=== PATIENT | male | born 1985 | race Caucasian/White ===

== ENCOUNTER 2017-04-16 08:12 | Emergency (ER) | payer SELFPAY ==
[2017-04-16 08:27] VITALS: BP 126/85
[2017-04-16] MEDS ORDERED: Lidocaine/EPINEPHrine/Tetracaine Soln 1 ML TOP ONE (08:39)
[2017-04-16] MEDS ORDERED: Lidocaine 1% with EPINEPHrine 1:100,000 20 ML MDV INJECT ONE (08:40)
--- NOTE | 2017-04-16 09:39 | EDM.PDOC ---
ED HPI GENERAL MEDICAL PROBLEM - General Chief Complaint: Skin Complaint Stated Complaint: BOIL IN LEFT ARMPIT Time Seen by Provider: 04/16/17 08:35 Source of Information: Reports: Patient History Limitations: Reports: No Limitations - History of Present Illness INITIAL COMMENTS - FREE TEXT/NARRATIVE: The patient presents with abscess to the left axilla. He noticed a lesion there before and drained it and it got infected. This time he noticed a small lesion about a month ago and over the past few days it has gotten larger and more painful. He denies fever or chills. He has no history of MRSA. Onset: Gradual Duration: Day(s): Location: Reports: Upper Extremity, Left (axilla) Quality: Reports: Sharp Severity: Moderate Improves with: Reports: None Worsens with: Reports: None Associated Symptoms: Reports: No Other Symptoms Left Pain Score (Numeric/FACES): 1 - Related Data Allergies Allergy/AdvReac Type Severity Reaction Status Date / Time amoxicillin Allergy Airway Verified 04/16/17 08:27 Tightness Home Meds: Home Meds Doxycycline [Vibramycin] 100 mg PO Q12HR #20 cap 04/16/17 [Rx] Past Medical History Musculoskeletal History: Reports: Fracture Psychiatric History: Reports: Addiction Dermatologic History: Reports: Other (See Below) Other Dermatologic History: boils - Infectious Disease History Infectious Disease History: Reports: Chicken Pox - Past Surgical History Musculoskeletal Surgical History: Reports: Carpal Tunnel, Other (See Below) Other Musculoskeletal Surgeries/Procedures:: spinal fusion, bilateral wrist surgery Social & Family History - Family History Family Medical History: Noncontributory - Tobacco Use Smoking Status *Q: Current Every Day Smoker Years of Tobacco use: 18 Packs/Tins Daily: 1 - Caffeine Use Caffeine Use: Reports: Coffee Other Caffeine Use: daily - Alcohol Use Days Per Week of Alcohol Use: 7 Number of Drinks Per Day: 6 Total Drinks Per Week: 42 - Recreational Drug Use Recreational Drug Use: Yes Drug Use in Last 12 Months: Yes Recreational Drug Type: Reports: Marijuana/Hashish Other Recreational Drug Type: "only marijuana in last 12 months, otherwise tried almost everything in past." ED ROS GENERAL - Review of Systems Review Of Systems: See Below Constitutional: Reports: No Symptoms HEENT: Reports: No Symptoms Respiratory: Reports: No Symptoms Cardiovascular: Reports: No Symptoms Endocrine: Reports: No Symptoms GI/Abdominal: Reports: No Symptoms : Reports: No Symptoms Musculoskeletal: Reports: Other (Left axilla abscess) ED EXAM, SKIN/RASH Exam: See Below Exam Limited By: No Limitations General Appearance: Alert, No Apparent Distress Ears: Normal External Exam Nose: Normal Inspection Head: Atraumatic, Normocephalic Neck: Normal Inspection Respiratory/Chest: No Respiratory Distress Extremities: Other (Abscess to the left axilla with some erythema around it.) ED SKIN PROCEDURES - I&D Site: Left axilla Skin Prep: Other (Chlor prep) Local Anesthesia: Lidocaine: 1% With EPI (and LET) Local Anesthetic Volume: 1cc Area Incised With: 11 Blade Drainage: Purulent, Large Amount Probed to Break Up Loculations: Yes Packed With: 1/2 in. Iodoform Sterile Dressing: Adhesive Dressing Complications: No Course - Vital Signs Last Recorded V/S: Last Vital Signs Temp 97.4 F 04/16/17 08:21 Pulse 93 04/16/17 08:21 Resp 14 04/16/17 08:21 BP 126/85 04/16/17 08:21 Pulse Ox 98 04/16/17 08:21 - Orders/Labs/Meds Orders: Active Orders 24 hr Category Date Time Status CULTURE ANAEROBIC + SMEAR [RM] Stat Lab 04/16/17 09:34 Uncollected Meds: Medications Discontinued Medications Generic Name Dose Route Start Last Admin Trade Name Cathy PRN Reason Stop Dose Admin Lidocaine/Epinephrine 20 ml 04/16/17 08:40 04/16/17 08:47 Xylocaine 1% With Epinephrine 1:100,000 INJECT 04/16/17 08:41 20 ml ONETIME ONE Administration Lidocaine/Tetracaine 1 ml 04/16/17 08:39 04/16/17 08:44 Let Soln TOP 04/16/17 08:40 1 ml ONETIME ONE Administration - Re-Assessments/Exams Free Text/Narrative Re-Assessment/Exam: 04/16/17 09:44 I cut open his abscess. Please see procedure note. The last time he did it. He got an infection. I will get him on some doxycycline. Departure - Departure Time of Disposition: 09:45 Disposition: Home, Self-Care 01 Condition: Good Clinical Impression: Abscess - Discharge Information Prescriptions: Doxycycline [Vibramycin] 100 mg PO Q12HR #20 cap Referrals: PCP,None [Primary Care Provider] - Dania Mckeon PA-C [Physician Cooler Tender] - 1 Week (If not better) Forms: ED Department Discharge Additional Instructions: Take the doxycycline 2 times per day for 10 days. Put warm compresses on the affected area 2 to 3 times per day. Try to leave the packing in for 5 days. If it comes out earlier that is okay. You can take it out in 5 days or follow up with Dania Mckeon. Please return if you are worse. - My Orders Last 24 Hours: My Active Orders 04/16/17 09:34 CULTURE ANAEROBIC + SMEAR [RM] Stat - Assessment/Plan Last 24 Hours: My Active Orders 04/16/17 09:34 CULTURE ANAEROBIC + SMEAR [RM] Stat
== END 2017-04-16 10:15 | disposition home or self-care (01) ==
LOC: JD.ED 08:12
DX: L02.412 Cutaneous abscess of left axilla (principal); F17.210 Nicotine dependence, cigarettes, uncomplicated; Z88.1 Allergy status to other antibiotic agents; Z98.1 Arthrodesis status; Z98.890 Other specified postprocedural states
CPT/HCPCS: 10061; 87075; 87076; 87181; 87205; 99283; A9270